=== PATIENT | female | born 1975 | race Caucasian/White ===

== ENCOUNTER 2017-02-11 17:43 | Inpatient (IN) | payer MEDICAID ==
[~2017-02-11] VITALS: Ht 162.6 cm; Wt 96.1 kg
[2017-02-11] MEDS ORDERED: ACETAMINOPHEN 500 MG TABLET PO ONE (18:30)
[2017-02-11] MEDS ORDERED: SODIUM CHLORIDE 0.9% 1,000ML IVBOLUS ONE (18:30)
[2017-02-11] MEDS ORDERED: LORazepam 1MG TABLET PO ONE (18:30)
[2017-02-11] MEDS ORDERED: CEFTRIAXONE PMX 1GM/50ML 0 ML ONE (18:58)
[2017-02-11] MEDS ORDERED: LORazepam 1MG TABLET ONE (18:58)
[2017-02-11] MEDS ORDERED: ACETAMINOPHEN 500 MG TABLET ONE (18:58)
[2017-02-11] MEDS ORDERED: CEFTRIAXONE PMX 2GM/50ML 50 ML IVPB ONE (19:00)
[2017-02-11 19:02] LABS: BLOOD UREA NITROGEN 8 mg/dL (7-18)
[2017-02-11] MEDS ORDERED: CEFTRIAXONE PMX 2GM/50ML 50 ML ONE (19:03)
[2017-02-11 19:07] LABS: ASPARTATE AMINO TRANSFERASE 20 U/L (15-37)
[2017-02-11 19:09] LABS: IS PT STATUS REG ER OR PRE ER? YES
[2017-02-11 19:16] LABS: PATH.CAST-FLAG NOT PRESENT; SPERM-FLAG NOT PRESENT; SRC-FLAG NOT PRESENT; XTAL-FLAG NOT PRESENT; YLC-FLAG NOT PRESENT
[2017-02-11 19:16] LABS: RAPID INFLUENZA A Negative (Negative); RAPID INFLUENZA B Negative (Negative)
[2017-02-11] MEDS ORDERED: LORazepam 2 MG/ML, 1ML IVPush PRN (19:30)
[2017-02-11] MEDS ORDERED: LORazepam 2 MG/ML, 1ML ONE (19:54)
[2017-02-11 20:03] LABS: DIFF TOTAL CELLS COUNTED 200 CELL DIFF
[2017-02-11 20:04] LABS: POLYCHROMASIA 1+; SMUDGE CELLS 1+; VERIFY COUNTS? YES
[2017-02-11] MEDS: SODIUM CHLORIDE 0.9% 1,000 ML IV SCH (21:50)
[2017-02-11] MEDS ORDERED: DOCUSATE 100 MG CAPSULE PO PRN (22:00)
[2017-02-11] MEDS ORDERED: CEFTRIAXONE 2 GM in SODIUM CHLORIDE 0.9% 50 ML IV SCH (22:00)
[2017-02-11] MEDS ORDERED: BISACODYL 10 MG SUPP PR PRN (22:00)
[2017-02-11] MEDS ORDERED: ONDANSETRON 2MG/ML, 2ML IVPush PRN (22:00)
[2017-02-11] MEDS ORDERED: TRAZODONE 50MG TABLET PO PRN (22:00)
[2017-02-11] MEDS ORDERED: POLYETHYLENE GLYCOL 17 GM PACKET PO PRN (22:00)
[2017-02-11] MEDS ORDERED: LABETALOL 5MG/ML, 20ML IVPush PRN (22:00)
[2017-02-11 23:33] LABS: IS PT STATUS REG ER OR PRE ER? NO
[2017-02-11] MEDS: NICOTINE 14MG/24 HR PATCH.TD24 TD SCH (23:56)
[2017-02-11] MEDS: ENOXAPARIN 40 MG/0.4 ML SQ SCH (23:56)
[2017-02-11 23:59] VITALS: BP 107/70
[2017-02-12] MEDS: KETOROLAC 30 MG/1 ML IVPush PRN ×4 (00:20→17:43)
[2017-02-12 01:02] VITALS: BP 99/66
[2017-02-12] MEDS: SODIUM CHLORIDE 0.9% 1,000 ML IV SCH ×4 (03:12→21:48)
[2017-02-12 06:33] VITALS: BP 114/76
[2017-02-12] MEDS: THIAMINE 100MG TABLET PO SCH (08:09)
[2017-02-12] MEDS: ASPIRIN 81 MG TABLET CHEW PO SCH (08:09)
[2017-02-12] MEDS: FOLIC ACID 1 MG TABLET PO SCH (08:10)
[2017-02-12 09:38] LABS: BLOOD UREA NITROGEN 7 mg/dL (7-18)
[2017-02-12 09:43] LABS: ASPARTATE AMINO TRANSFERASE 25 U/L (15-37)
[2017-02-12 09:45] LABS: IS PT STATUS REG ER OR PRE ER? NO
[2017-02-12 12:36] VITALS: BP 105/69
[2017-02-12] MEDS: LORazepam 2 MG/ML, 1ML IVPush PRN ×2 (15:53→21:49)
[2017-02-12] MEDS: NICOTINE 14MG/24 HR PATCH.TD24 TD SCH (17:44)
[2017-02-12] MEDS: ENOXAPARIN 40 MG/0.4 ML SQ SCH (17:44)
[2017-02-12] MEDS: CEFTRIAXONE PMX 2GM/50ML 50 ML IVPB SCH (17:45)
[2017-02-12 18:43] VITALS: BP 118/67
[2017-02-13] MEDS: SODIUM CHLORIDE 0.9% 1,000 ML IV SCH ×3 (03:00→16:14)
[2017-02-13] MEDS: LORazepam 2 MG/ML, 1ML IVPush PRN ×2 (04:54→20:11)
[2017-02-13] MEDS: KETOROLAC 30 MG/1 ML IVPush PRN ×3 (04:54→20:11)
[2017-02-13 06:04] LABS: BLOOD UREA NITROGEN 6 mg/dL (7-18)
[2017-02-13 06:52] VITALS: BP 112/75
[2017-02-13] MEDS: THIAMINE 100MG TABLET PO SCH (09:30)
[2017-02-13] MEDS: FOLIC ACID 1 MG TABLET PO SCH (09:30)
[2017-02-13] MEDS: ASPIRIN 81 MG TABLET CHEW PO SCH (09:30)
[2017-02-13] MEDS: ACETAMINOPHEN 325 MG TABLET PO PRN ×2 (09:31→14:21)
[2017-02-13 13:20] VITALS: BP 119/83
[2017-02-13] MEDS: CEFTRIAXONE PMX 2GM/50ML 50 ML IVPB SCH (18:23)
[2017-02-13] MEDS: ENOXAPARIN 40 MG/0.4 ML SQ SCH (18:24)
[2017-02-13] MEDS: NICOTINE 14MG/24 HR PATCH.TD24 TD SCH (18:24)
[2017-02-13 20:46] VITALS: BP 126/89
[2017-02-14] MEDS: LORazepam 2 MG/ML, 1ML IVPush PRN ×2 (02:33→08:46)
[2017-02-14] MEDS: KETOROLAC 30 MG/1 ML IVPush PRN ×2 (02:33→08:46)
[2017-02-14 04:14] VITALS: BP 115/80
[2017-02-14] MEDS: SODIUM CHLORIDE 0.9% 1,000 ML IV SCH ×3 (05:00→11:40)
[2017-02-14 08:23] VITALS: BP 119/82
[2017-02-14] MEDS: FOLIC ACID 1 MG TABLET PO SCH (08:29)
[2017-02-14] MEDS: ASPIRIN 81 MG TABLET CHEW PO SCH (08:29)
[2017-02-14] MEDS: THIAMINE 100MG TABLET PO SCH (08:29)
[2017-02-14] MEDS: ACETAMINOPHEN 325 MG TABLET PO PRN (08:46)
[2017-02-14] MEDS ORDERED: CEFD300C37 PO (12:55)
[2017-02-14 14:08] VITALS: BP 110/73
[2017-02-14 15:15] VITALS: BP 110/73
== END 2017-02-14 15:40 | disposition home or self-care (01) | DRG 871 ==
LOC: ED 18:23 → EDIP 20:29 → 4NOR 22:27
PROVIDERS: ADMIT Internal Medicine; ATTEND Internal Medicine
PROC: 0T9B70Z Drainage of Bladder with Drainage Device, Via Natural or Artificial Opening (ICD-10-PCS; principal; 2017-02-11)
DX: A41.9 Sepsis, unspecified organism (principal); E43 Unspecified severe protein-calorie malnutrition; N10 Acute pyelonephritis; N30.91 Cystitis, unspecified with hematuria; J44.9 Chronic obstructive pulmonary disease, unspecified; F41.9 Anxiety disorder, unspecified; F15.10 Other stimulant abuse, uncomplicated; F10.10 Alcohol abuse, uncomplicated; F17.210 Nicotine dependence, cigarettes, uncomplicated; E86.0 Dehydration; B96.20 Unspecified Escherichia coli [E. coli] as the cause of diseases classified elsewhere; Z71.6 Tobacco abuse counseling; Z80.9 Family history of malignant neoplasm, unspecified; Z82.49 Family history of ischemic heart disease and other diseases of the circulatory system; Z82.5 Family history of asthma and other chronic lower respiratory diseases; Z68.36 Body mass index [BMI] 36.0-36.9, adult
CPT/HCPCS: 36415; 71010; 80048; 80053; 80307; 81001; 82550; 83605; 83735; 84145; 84439; 84443; 84484; 84703; 85025; 87040; 87077; 87086; 87186; 87400; 93005; 96365; 96375; J0696; J1650; J1885; J2060; J7030

== ENCOUNTER 2017-08-27 11:57 | Emergency (ER) | payer MEDICAID ==
[~2017-08-27] VITALS: Ht 160 cm; Wt 89.5 kg
[~2017-08-27 11:57] MED LIST: CEFD300C37 PO
[2017-08-27 12:05] VITALS: BP 140/90
[2017-08-27] MEDS ORDERED: FLUORESCEIN OPHTHALMIC 1 MG STRIP ONE (12:45)
[2017-08-27] MEDS ORDERED: PROPARACAINE OPHTH 0.5%, 15ML ONE (12:45)
== END 2017-08-27 13:57 | disposition home or self-care (01) ==
LOC: ED 13:50
DX: J01.10 Acute frontal sinusitis, unspecified (principal); J44.9 Chronic obstructive pulmonary disease, unspecified
CPT/HCPCS: 99283

== ENCOUNTER 2017-09-01 20:26 | Emergency (ER) | payer MEDICAID ==
[~2017-09-01] VITALS: Ht 162.6 cm; Wt 90.3 kg
[2017-09-01 20:38] VITALS: BP 127/79
[2017-09-01] MEDS ORDERED: SODIUM CHLORIDE 0.9% 1,000ML IVBOLUS ONE (21:00)
[2017-09-01 21:13] LABS: BASOPHILS # (AUTO) 0.04 x10^3/uL (0-0.1); BASOPHILS % (AUTO) 1 % (0-1); EOSINOPHILS # (AUTO) 0.41 x10^3/uL (0-0.4); EOSINOPHILS % (AUTO) 5 % (1-7); LYMPHOCYTES # (AUTO) 1.97 x10^3/uL (1-3.4); LYMPHOCYTES % (AUTO) 26 % (22-44); MD NO; MEAN CORPUSCULAR HEMOGLOBIN 29.8 pg (27.0-34.8); MEAN CORPUSCULAR HGB CONC 33.4 g/dL (32.4-35.8); MEAN CORPUSCULAR VOLUME 89.3 fL (80-100); MEAN PLATELET VOLUME 7.1 fL (7.4-10.4); MONOCYTES % (AUTO) 9 % (2-9); NEUTROPHILS # (AUTO) 4.49 x10^3/uL (1.8-6.8); NEUTROPHILS % (AUTO) 59 % (42-75); PLATELET COUNT 404 x10^3/uL (130-400); RED CELL DISTRIBUTION WIDTH 15.2 % (9.6-15.2)
[2017-09-01 21:24] LABS: ALANINE AMINOTRANSFERASE 27 U/L (12-78); ALBUMIN 3.2 g/dL (3.4-5.0); ANION GAP 8 mmol/L (5-15); CALCIUM 8.4 mg/dL (8.5-10.1); CHLORIDE 103 mmol/L (98-107); CREATININE 0.88 mg/dL (0.55-1.02)
[2017-09-01 21:26] LABS: RAPID INFLUENZA A Negative (Negative); RAPID INFLUENZA B Negative (Negative)
[2017-09-01 21:28] LABS: ALKALINE PHOSPHATASE 81 U/L (45-117); BILIRUBIN,TOTAL 0.2 mg/dL (0.2-1.0)
[2017-09-01 21:31] LABS: MICROSCOPIC NOT IND
[2017-09-01 21:42] LABS: AMPHETAMINE SCREEN, URINE Positive (Negative); BARBITURATE SCREEN, URINE Negative (Negative); BENZODIAZEPINE SCREEN, URINE Negative (Negative); CANNABINOID SCREEN, URINE Negative (Negative); COCAINE SCREEN, URINE Negative (Negative); METHADONE SCREEN, URINE Negative (Negative); OPIATE SCREEN, URINE Negative (Negative)
[2017-09-01 21:44] LABS: CULTURE INDICATED? NO
== END 2017-09-01 22:27 | disposition home or self-care (01) ==
LOC: ED 22:03
DX: B34.9 Viral infection, unspecified (principal); F15.10 Other stimulant abuse, uncomplicated; Z72.9 Problem related to lifestyle, unspecified; J44.9 Chronic obstructive pulmonary disease, unspecified
CPT/HCPCS: 36415; 71046; 80053; 80307; 81003; 83605; 84145; 84703; 85025; 87400; 99285; G0479

== ENCOUNTER 2018-02-21 19:08 | Emergency (ER) | payer SELFPAY ==
[~2018-02-21] VITALS: Ht 162.6 cm; Wt 90.2 kg
[2018-02-21 19:25] VITALS: BP 139/93
[2018-02-21 20:03] LABS: CULTURE INDICATED? YES; MICROSCOPIC INDICATED
== END 2018-02-21 20:46 | disposition home or self-care (01) ==
LOC: ED 20:45
DX: S60.031A Contusion of right middle finger without damage to nail, initial encounter (principal); N30.01 Acute cystitis with hematuria; W23.0XXA Caught, crushed, jammed, or pinched between moving objects, initial encounter; Y93.89 Activity, other specified; Y99.8 Other external cause status; Y92.009 Unspecified place in unspecified non-institutional (private) residence as the place of occurrence of the external cause; J44.9 Chronic obstructive pulmonary disease, unspecified
CPT/HCPCS: 29130; 81001; 87077; 87086; 87186; 99285

== ENCOUNTER 2018-03-12 16:08 | Emergency (ER) | payer SELFPAY ==
[~2018-03-12] VITALS: Ht 162.6 cm; Wt 91.0 kg
[2018-03-12 16:10] VITALS: BP 129/80
[2018-03-12 17:18] LABS: HCG UR SG 1.036 (1.003-1.030); MICROSCOPIC NOT IND
[2018-03-12 17:20] LABS: CULTURE INDICATED? NO
[2018-03-12] MEDS ORDERED: HYDROcodone/APAP 5/325 TABLET PO ONE (18:00)
[2018-03-12] MEDS ORDERED: HYDROcodone/APAP 5/325 TABLET ONE (18:28)
== END 2018-03-12 18:43 | disposition home or self-care (01) ==
LOC: ED 17:39
DX: S63.632A Sprain of interphalangeal joint of right middle finger, initial encounter (principal); J44.9 Chronic obstructive pulmonary disease, unspecified; M25.521 Pain in right elbow; F17.200 Nicotine dependence, unspecified, uncomplicated; X58.XXXA Exposure to other specified factors, initial encounter; Y93.89 Activity, other specified; Y92.89 Other specified places as the place of occurrence of the external cause; Y99.0 Civilian activity done for income or pay
CPT/HCPCS: 81003; 81025; 99285

== ENCOUNTER 2019-03-13 17:03 | Emergency (ER) | payer SELFPAY ==
[~2019-03-13] VITALS: Ht 162.6 cm; Wt 90.1 kg
--- NOTE | 2019-03-13 18:29 | NUR ---
NO ANS WHEN CALLED FOR ROOM AT THIS TIME.
--- NOTE | 2019-03-13 19:14 | NUR ---
RN ARRIVED TO ROOM AND PTS MOTHER BEGAN TO YELL AT RN SAYING "THIS IS BULLSHIT WE HAVE NEVER BEEN TREATED LIKE THIS, MY DAUGHTER IS IN PAIN SHE SHOULD BE THE FIRTS SEEN! WE ARE FUCKEN LEAVING RIGHT NOW" DAUGHTER RESPONDED "NO MOM IM I ALOT OF PAIN AND I DONT FEEL WELL, MY CHEST FEELS LIKE SOMETHING IS PRESSURING ON IT, I NEED HELP MAYBE AN ASPARIN OR TYLENOL. OR SOMETHING FOR LIKE ANXIETY." PTS MOTHER ENCOURAGING FOR HER TO LEAVE. INFORMED THEY WOULD HAVE TO LEAVE AMA AND THAT THIS RN RECOMMENED THAT DAUGHTER STAY IF SHE WAS IN MUCH DISTRESS REPORTED. RN THEN BEGAN ASSESMENT. MOTHER BECAME VERY INPATIENT AND PACING ROOM. DAUGHTER COOPERATIVE. ADMITTED TO [facility] 3 DAYS AGO.
--- NOTE | 2019-03-13 19:17 | NUR ---
THIS IS A 43 Y/O FEMALE THAT ARRIVES TO THE ED FOR SEVERE ANXIETY AND RESP DISTRESS. PT REPROTS SHE HAS SEVERE PRESURE IN HER CHEST AND UNABLE TO CATCH HER BREATH. HER SYMPTOMS STARTED THIS MORNING AROUND 6 AM. PT CONNECTED TO ALL MONITORS AND CALL LIGHT IN REACH. LUNGS SOUNDS WERE DIMINISHED. PT HAS GOOD EQUAL PULSES AND GOOD CAP REFILL. PT HAS NO S/SX OF DRUG USE. HEAVY SMOKER AND PT USES METH. AWAITING FURTHER ORDERS.
[2019-03-13] MEDS ORDERED: morphine SULFATE 10 MG/ML, 1ML IVPush ONE (19:30)
[2019-03-13] MEDS ORDERED: KETOROLAC 30 MG/1 ML IVPush ONE (19:30)
[2019-03-13] MEDS ORDERED: DIPHENHYDRAMINE 50 MG/ML, 1ML IVPush ONE (19:30)
[2019-03-13] MEDS ORDERED: ONDANSETRON 2MG/ML, 2ML ONE (19:33)
[2019-03-13] MEDS ORDERED: KETOROLAC 30 MG/1 ML ONE (19:33)
[2019-03-13] MEDS ORDERED: MORPHINE SULFATE 4 MG/ML, 1ML ONE (19:33)
[2019-03-13 19:38] LABS: BASOPHILS # (AUTO) 0.05 x10^3/uL (0-0.1); BASOPHILS % (AUTO) 0 % (0-1); EOSINOPHILS # (AUTO) 0.32 x10^3/uL (0-0.4); EOSINOPHILS % (AUTO) 2 % (1-7); LYMPHOCYTES # (AUTO) 2.67 x10^3/uL (1-3.4); LYMPHOCYTES % (AUTO) 19 % (22-44); MD NO; MEAN CORPUSCULAR HEMOGLOBIN 30.1 pg (27.0-34.8); MEAN CORPUSCULAR HGB CONC 32.8 g/dL (32.4-35.8); MEAN CORPUSCULAR VOLUME 91.8 fL (80-100); MEAN PLATELET VOLUME 7.7 fL (7.4-10.4); MONOCYTES # (AUTO) 0.93 x10^3/uL (0.2-0.8); MONOCYTES % (AUTO) 7 % (2-9); NEUTROPHILS % (AUTO) 72 % (42-75); PLATELET COUNT 390 x10^3/uL (130-400); RED CELL DISTRIBUTION WIDTH 14.4 % (9.6-15.2)
[2019-03-13 19:47] LABS: ALBUMIN 3.3 g/dL (3.4-5.0); ANION GAP 7 mmol/L (5-15); CALCIUM 8.6 mg/dL (8.5-10.1); CHLORIDE 109 mmol/L (98-107)
[2019-03-13 19:50] LABS: INTERNATIONAL NORMALIZED RATIO 0.95 (0.93-1.1)
--- NOTE | 2019-03-13 19:53 | NUR ---
PT MEDICATED PER EMAR. NAGAN
[2019-03-13 19:54] LABS: ALANINE AMINOTRANSFERASE 24 U/L (12-78); ALKALINE PHOSPHATASE 76 U/L (45-117); BILIRUBIN,TOTAL 0.3 mg/dL (0.2-1.0); CREATININE 0.86 mg/dL (0.55-1.02); TOTAL PROTEIN 6.8 g/dL (6.4-8.2); TROPONIN I < 0.015 ng/mL (0.000-0.045)
[2019-03-13] MEDS ORDERED: DIPHENHYDRAMINE 50 MG/ML, 1ML ONE (19:55)
[2019-03-13 19:59] LABS: D-DIMER 0.92 ug/mlFEU (0.00-0.52)
--- NOTE | 2019-03-13 20:22 | NUR ---
PT TO HAVE CTA AT THIS TIME.
[2019-03-13] MEDS ORDERED: ONDANSETRON ODT 4 MG PO ONE (21:00)
--- NOTE | 2019-03-13 21:15 | NUR ---
PT ASSITED TO RESTROOM FOR URINE SAMPLE. ÁNGEL. PT REPORTS SHE IS VERY ANXIOUS AND WHAT WE PLAN TO DO ABOUT IT?
[2019-03-13] MEDS ORDERED: OMNIPAQUE 350 MG/ML, 100ML BOTTLE ONE (21:45)
[2019-03-13 21:57] VITALS: BP 174/89
--- NOTE | 2019-03-13 21:58 | NUR ---
PTS MOTHER CONTINUES INDIRECT RUDE COMMENTS TO THIS RN WHEN RN IN ROOM OR UNABLE TO UPDATE DUE TO PENDING RESULTS. MOTHER UPSET RN WILL NOT FEED HER DAUGHTER DUE TO NPO STATUS UNTIL MD STATES OTHERWISE.
[2019-03-13] MEDS ORDERED: HYDROcodone/APAP 5/325 TABLET PO ONE (22:30)
[2019-03-13] MEDS ORDERED: ONDANSETRON ODT 4 MG ONE (22:54)
[2019-03-13] MEDS ORDERED: HYDROcodone/APAP 5/325 TABLET ONE (22:55)
--- NOTE | 2019-03-13 23:12 | NUR ---
Patient/Caregiver given discharge instructions and they have confirmed that they understand the instructions. Patient ambulatory with steady gait.
== END 2019-03-13 23:14 | disposition home or self-care (01) ==
LOC: ED 20:14
DX: M94.0 Chondrocostal junction syndrome [Tietze] (principal); R07.89 Other chest pain; F17.200 Nicotine dependence, unspecified, uncomplicated; J44.9 Chronic obstructive pulmonary disease, unspecified
CPT/HCPCS: 36415; 71045; 71275; 80053; 84484; 85025; 85379; 85610; 85730; 93005; 96374; 96375; 99284; J1200; J1885; J2270; Q0162; Q9967

== ENCOUNTER 2021-03-22 02:14 | Inpatient (IN) | payer MEDICAID ==
[~2021-03-22] VITALS: Ht 157.5 cm; Wt 96.7 kg
--- NOTE | 2021-03-22 02:40 | NUR ---
THIS RN WALKED COVID SWAB TO LAB AT THIS TIME.
[2021-03-22] MEDS ORDERED: ALBUTEROL/IPRATROPIUM 2.5MG/0.5MG, 3 ML ONE ×2 (02:51→03:20)
[2021-03-22] MEDS ORDERED: methylPREDNISolone SOD SUCC 125 MG/2 ML ONE (02:51)
[2021-03-22] MEDS: ALBUTEROL/IPRATROPIUM 2.5MG/0.5MG, 3 ML NPPB SCH ×2 (02:58→03:29)
[2021-03-22] MEDS ORDERED: methylPREDNISolone SOD SUCC 125 MG/2 ML IV ONE (03:00)
[2021-03-22] MEDS ORDERED: SODIUM CHLORIDE FLUSH 10ML SYR IVF ONE (03:00)
[2021-03-22] MEDS ORDERED: SODIUM CHLORIDE 0.9% 1,000ML IVBOLUS ONE (03:00)
[2021-03-22] MEDS ORDERED: ONDANSETRON 2MG/ML, 2ML ONE (03:07)
[2021-03-22 03:09] LABS: BASOPHILS % (AUTO) 1 % (0-1); EOSINOPHILS % (AUTO) 0 % (1-7); LYMPHOCYTES % (AUTO) 21 % (22-44); MEAN CORPUSCULAR HEMOGLOBIN 31.5 pg (27.0-34.8); MEAN CORPUSCULAR HGB CONC 34.1 g/dL (32.4-35.8); MEAN PLATELET VOLUME 8.5 fL (7.4-10.4); MONOCYTES % (AUTO) 7 % (2-9); NEUTROPHILS % (AUTO) 71 % (42-75); PLATELET COUNT 220 x10^3/uL (130-400); RED BLOOD COUNT 5.18 x10^6/uL (3.82-5.3); RED CELL DISTRIBUTION WIDTH 15.4 % (9.6-15.2)
--- NOTE | 2021-03-22 03:14 | NUR ---
Pt placed on Oxy mask at 15lpm due to continued hypoxemia. Pt O2 sats 86% on 6L NC. Pt continues to exhibit moderate to severe s/s of respiratory distress. Dr. Denice montoya.
[2021-03-22 03:16] LABS: ALANINE AMINOTRANSFERASE 32 U/L (12-78); ALBUMIN 2.7 g/dL (3.4-5.0); ANION GAP 4 mmol/L (5-15); CALCIUM 8.2 mg/dL (8.5-10.1); CHLORIDE 100 mmol/L (98-107); CREATININE 0.91 mg/dL (0.55-1.02)
[2021-03-22 03:18] LABS: ALKALINE PHOSPHATASE 89 U/L (45-117); BILIRUBIN,TOTAL 0.3 mg/dL (0.2-1.0); TOTAL PROTEIN 7.1 g/dL (6.4-8.2)
[2021-03-22] MEDS ORDERED: ONDANSETRON 2MG/ML, 2ML IVPush ONE (03:30)
[2021-03-22 03:33] LABS: TROPONIN I < 0.015 ng/mL (0.000-0.045)
--- NOTE | 2021-03-22 04:04 | NUR ---
Hospitalist at bedside.
--- NOTE | 2021-03-22 04:15 | NUR ---
Report given to HAVEN Zendejas no further questions at this time. Aware that pt will be taken to CT and then up to Ip bed assignment.
[2021-03-22] MEDS: AZITHROMYCIN 500 MG TABLET PO SCH ×2 (04:30→07:29)
[2021-03-22] MEDS ORDERED: ACETAMINOPHEN 500 MG TABLET PO PRN (04:30)
--- NOTE | 2021-03-22 04:37 | NUR ---
Pt transported to CT at this time on Oxy mask at 15lpm, tolerating well.
[2021-03-22] MEDS ORDERED: OMNIPAQUE 350 MG/ML, 100ML BOTTLE ONE (04:58)
[2021-03-22 05:39] VITALS: BP 95/66
[2021-03-22] MEDS ORDERED: AZITHROMYCIN 500 MG in SODIUM CHLORIDE 0.9% 250 ML IV ONE (06:00)
[2021-03-22] MEDS ORDERED: CEFTRIAXONE 1,000 MG in DEXTROSE 5% 50 ML IVPB ONE (06:00)
[2021-03-22] MEDS: ENOXAPARIN 40 MG/0.4 ML SQ SCH (06:34)
[2021-03-22] MEDS: ALBUTEROL-IPRATROPIUM MDI INH INH SCH ×4 (07:00→23:51)
[2021-03-22 08:59] VITALS: BP 108/75
[2021-03-22] MEDS: BENZONATATE 100 MG CAPSULE PO PRN (09:43)
[2021-03-22] MEDS: DEXAMETHASONE 4 MG/ML, 1ML IVPush SCH (09:43)
[2021-03-22] MEDS ORDERED: FUROSEMIDE 40 MG/4 ML IV ONE (11:00)
[2021-03-22 12:13] LABS: HCT (SEDRATE) 46.5 % (34.6-47.8)
[2021-03-22 12:26] LABS: D-DIMER 1.3 ug/mlFEU (0.00-0.52)
[2021-03-22] MEDS: THIAMINE 100MG TABLET PO SCH (12:29)
[2021-03-22] MEDS: ZINC SULFATE 220 MG CAPSULE PO SCH (12:29)
[2021-03-22] MEDS: CHOLECALCIFEROL 5,000u TAB PO SCH (12:29)
[2021-03-22] MEDS ORDERED: REMDESIVIR 200 MG in SODIUM CHLORIDE 0.9% 250 ML IVPB ONE (14:00)
[2021-03-22 14:53] VITALS: BP 109/75
[2021-03-22] MEDS: ASCORBIC ACID 500 MG TABLET PO SCH (17:18)
[2021-03-22 19:39] VITALS: BP 122/74
[2021-03-23 01:44] VITALS: BP 100/69
[2021-03-23] MEDS: ALBUTEROL-IPRATROPIUM MDI INH INH SCH ×6 (03:36→23:36)
[2021-03-23] MEDS: ENOXAPARIN 40 MG/0.4 ML SQ SCH (04:29)
[2021-03-23 05:33] LABS: CHLORIDE 104 mmol/L (98-107)
[2021-03-23 05:45] LABS: ALANINE AMINOTRANSFERASE 29 U/L (12-78); ALBUMIN 2.4 g/dL (3.4-5.0); ALKALINE PHOSPHATASE 82 U/L (45-117); BILIRUBIN,TOTAL 0.2 mg/dL (0.2-1.0); CALCIUM 8.7 mg/dL (8.5-10.1); TOTAL PROTEIN 6.6 g/dL (6.4-8.2)
[2021-03-23 05:49] LABS: ANION GAP 4 mmol/L (5-15)
[2021-03-23 06:50] LABS: BASOPHILS % (AUTO) 0 % (0-1); EOSINOPHILS % (AUTO) 0 % (1-7); LYMPHOCYTES % (AUTO) 8 % (22-44); MEAN CORPUSCULAR HEMOGLOBIN 30.9 pg (27.0-34.8); MEAN CORPUSCULAR HGB CONC 33.2 g/dL (32.4-35.8); MEAN PLATELET VOLUME 8.3 fL (7.4-10.4); MONOCYTES % (AUTO) 5 % (2-9); NEUTROPHILS % (AUTO) 87 % (42-75); PLATELET COUNT 264 x10^3/uL (130-400); RED BLOOD COUNT 4.91 x10^6/uL (3.82-5.3); RED CELL DISTRIBUTION WIDTH 15.4 % (9.6-15.2)
[2021-03-23 08:17] VITALS: BP 105/72
[2021-03-23] MEDS: CHOLECALCIFEROL 5,000u TAB PO SCH (08:52)
[2021-03-23] MEDS: ZINC SULFATE 220 MG CAPSULE PO SCH (08:52)
[2021-03-23] MEDS: THIAMINE 100MG TABLET PO SCH (08:52)
[2021-03-23] MEDS: AZITHROMYCIN 500 MG TABLET PO SCH (08:52)
[2021-03-23] MEDS: DEXAMETHASONE 4 MG/ML, 1ML IVPush SCH (08:52)
[2021-03-23] MEDS: ASCORBIC ACID 500 MG TABLET PO SCH ×2 (08:52→16:39)
[2021-03-23 12:28] VITALS: BP 111/75
[2021-03-23] MEDS: HYDROcodone/APAP 5/325 TABLET PO PRN ×2 (12:58→20:36)
[2021-03-23] MEDS ORDERED: GUAIFENESIN/DM 200-20MG, 10ML UDC PO PRN (13:00)
[2021-03-23] MEDS: REMDESIVIR 100 MG in SODIUM CHLORIDE 0.9% 250 ML IVPB SCH (15:22)
[2021-03-23] MEDS: BENZONATATE 100 MG CAPSULE PO PRN (16:03)
[2021-03-23] MEDS: KETOROLAC 30 MG/1 ML IM PRN (16:39)
[2021-03-23 19:32] VITALS: BP 108/71
[2021-03-23] MEDS: TEMAZEPAM 15 MG CAPSULE PO PRN (20:36)
[2021-03-24 01:53] VITALS: BP 101/66
[2021-03-24] MEDS: ALBUTEROL-IPRATROPIUM MDI INH INH SCH ×6 (03:13→23:17)
[2021-03-24] MEDS: ENOXAPARIN 40 MG/0.4 ML SQ SCH (04:29)
[2021-03-24 05:04] LABS: BASOPHILS % (AUTO) 0 % (0-1); EOSINOPHILS % (AUTO) 0 % (1-7); LYMPHOCYTES % (AUTO) 9 % (22-44); MEAN CORPUSCULAR HEMOGLOBIN 31.2 pg (27.0-34.8); MEAN CORPUSCULAR HGB CONC 33.4 g/dL (32.4-35.8); MEAN PLATELET VOLUME 8.6 fL (7.4-10.4); MONOCYTES % (AUTO) 5 % (2-9); NEUTROPHILS % (AUTO) 86 % (42-75); PLATELET COUNT 298 x10^3/uL (130-400); RED BLOOD COUNT 4.71 x10^6/uL (3.82-5.3); RED CELL DISTRIBUTION WIDTH 15.3 % (9.6-15.2)
[2021-03-24 05:09] LABS: CHLORIDE 104 mmol/L (98-107)
[2021-03-24 05:18] LABS: ALANINE AMINOTRANSFERASE 29 U/L (12-78); ALBUMIN 2.3 g/dL (3.4-5.0); ALKALINE PHOSPHATASE 84 U/L (45-117); ANION GAP 3 mmol/L (5-15); BILIRUBIN,TOTAL 0.2 mg/dL (0.2-1.0); CALCIUM 8.8 mg/dL (8.5-10.1); CREATININE 0.95 mg/dL (0.55-1.02); TOTAL PROTEIN 6.6 g/dL (6.4-8.2)
[2021-03-24 08:09] VITALS: BP 109/72
[2021-03-24] MEDS: KETOROLAC 30 MG/1 ML IM PRN ×3 (08:25→23:17)
[2021-03-24] MEDS: BENZONATATE 100 MG CAPSULE PO PRN ×2 (08:28→20:17)
[2021-03-24] MEDS: CHOLECALCIFEROL 5,000u TAB PO SCH (08:28)
[2021-03-24] MEDS: THIAMINE 100MG TABLET PO SCH (08:28)
[2021-03-24] MEDS: AZITHROMYCIN 500 MG TABLET PO SCH (08:28)
[2021-03-24] MEDS: ASCORBIC ACID 500 MG TABLET PO SCH ×2 (08:28→16:57)
[2021-03-24] MEDS: ZINC SULFATE 220 MG CAPSULE PO SCH (08:29)
[2021-03-24] MEDS: DEXAMETHASONE 4 MG/ML, 1ML IVPush SCH (08:30)
[2021-03-24] MEDS: HYDROcodone/APAP 5/325 TABLET PO PRN ×2 (11:53→20:17)
[2021-03-24 12:11] VITALS: BP 112/75
[2021-03-24] MEDS: REMDESIVIR 100 MG in SODIUM CHLORIDE 0.9% 250 ML IVPB SCH (15:32)
[2021-03-24] MEDS ORDERED: OMNIPAQUE 350 MG/ML, 100ML BOTTLE ONE (16:36)
[2021-03-24 18:56] VITALS: BP 120/80
[2021-03-24] MEDS: TEMAZEPAM 15 MG CAPSULE PO PRN (20:17)
[2021-03-25 00:24] VITALS: BP 117/75
[2021-03-25] MEDS: HYDROcodone/APAP 5/325 TABLET PO PRN ×3 (03:33→21:22)
[2021-03-25] MEDS: ALBUTEROL-IPRATROPIUM MDI INH INH SCH ×4 (03:33→16:24)
[2021-03-25] MEDS: ENOXAPARIN 40 MG/0.4 ML SQ SCH (05:07)
[2021-03-25 05:28] LABS: ALBUMIN 2.2 g/dL (3.4-5.0); ANION GAP 4 mmol/L (5-15); CALCIUM 8.6 mg/dL (8.5-10.1); CHLORIDE 103 mmol/L (98-107)
[2021-03-25 05:31] LABS: ALANINE AMINOTRANSFERASE 28 U/L (12-78); ALKALINE PHOSPHATASE 76 U/L (45-117); BILIRUBIN,TOTAL 0.2 mg/dL (0.2-1.0); CREATININE 0.78 mg/dL (0.55-1.02); TOTAL PROTEIN 6.1 g/dL (6.4-8.2)
[2021-03-25 08:15] VITALS: BP 108/73
[2021-03-25] MEDS: THIAMINE 100MG TABLET PO SCH (09:19)
[2021-03-25] MEDS: BENZONATATE 100 MG CAPSULE PO PRN ×2 (09:19→21:21)
[2021-03-25] MEDS: ASCORBIC ACID 500 MG TABLET PO SCH ×2 (09:19→16:24)
[2021-03-25] MEDS: CHOLECALCIFEROL 5,000u TAB PO SCH (09:19)
[2021-03-25] MEDS: ZINC SULFATE 220 MG CAPSULE PO SCH (09:19)
[2021-03-25] MEDS: KETOROLAC 30 MG/1 ML IM PRN ×2 (09:20→17:45)
[2021-03-25] MEDS: DEXAMETHASONE 4 MG/ML, 1ML IVPush SCH (09:20)
[2021-03-25 12:45] VITALS: BP 111/72
[2021-03-25] MEDS: REMDESIVIR 100 MG in SODIUM CHLORIDE 0.9% 250 ML IVPB SCH (13:28)
[2021-03-25] MEDS: TEMAZEPAM 15 MG CAPSULE PO PRN (21:21)
[2021-03-25 21:27] VITALS: BP 139/90
[2021-03-26 00:05] VITALS: BP 145/90
[2021-03-26] MEDS: ENOXAPARIN 40 MG/0.4 ML SQ SCH (04:50)
[2021-03-26] MEDS: KETOROLAC 30 MG/1 ML IM PRN ×2 (04:51→11:56)
[2021-03-26 06:39] LABS: ALANINE AMINOTRANSFERASE 31 U/L (12-78); ALBUMIN 2.3 g/dL (3.4-5.0); CALCIUM 8.3 mg/dL (8.5-10.1); CREATININE 0.73 mg/dL (0.55-1.02)
[2021-03-26 06:40] LABS: ALKALINE PHOSPHATASE 77 U/L (45-117); BILIRUBIN,TOTAL 0.3 mg/dL (0.2-1.0); TOTAL PROTEIN 6.2 g/dL (6.4-8.2)
[2021-03-26 06:58] LABS: CHLORIDE 104 mmol/L (98-107)
[2021-03-26 06:59] LABS: ANION GAP 3 mmol/L (5-15)
[2021-03-26 08:31] VITALS: BP 130/80
[2021-03-26] MEDS: ALBUTEROL-IPRATROPIUM MDI INH INH SCH ×4 (08:56→11:56)
[2021-03-26] MEDS: ASCORBIC ACID 500 MG TABLET PO SCH (08:57)
[2021-03-26] MEDS: BENZONATATE 100 MG CAPSULE PO PRN (08:57)
[2021-03-26] MEDS: DEXAMETHASONE 4 MG/ML, 1ML IVPush SCH (08:57)
[2021-03-26] MEDS ORDERED: DEXA4TAB66 PO (08:57)
[2021-03-26] MEDS: ZINC SULFATE 220 MG CAPSULE PO SCH (08:57)
[2021-03-26] MEDS: CHOLECALCIFEROL 5,000u TAB PO SCH (08:57)
[2021-03-26] MEDS: THIAMINE 100MG TABLET PO SCH (08:57)
[2021-03-26] MEDS ORDERED: BENZ-17 PO (08:57)
[2021-03-26] MEDS ORDERED: Albuterol-Ipratropium Mdi INH (08:57)
[2021-03-26] MEDS: HYDROcodone/APAP 5/325 TABLET PO PRN (10:25)
[2021-03-26] MEDS: REMDESIVIR 100 MG in SODIUM CHLORIDE 0.9% 250 ML IVPB SCH (11:58)
[2021-03-26 13:39] VITALS: BP 154/86
[2021-03-27] MEDS ORDERED: METF500T17 PO (15:01)
== END 2021-03-26 14:39 | disposition home or self-care (01) | DRG 177 ==
LOC: ED 04:17 → EDIP 04:29 → 4WST 05:26
PROVIDERS: ADMIT Internal Medicine; ATTEND Hospitalist
DX: U07.1 COVID-19 (principal); J12.82 Pneumonia due to coronavirus disease 2019; J96.01 Acute respiratory failure with hypoxia; J44.0 Chronic obstructive pulmonary disease with (acute) lower respiratory infection; J44.1 Chronic obstructive pulmonary disease with (acute) exacerbation; E66.01 Morbid (severe) obesity due to excess calories; F15.10 Other stimulant abuse, uncomplicated; M06.9 Rheumatoid arthritis, unspecified; K43.9 Ventral hernia without obstruction or gangrene; Z79.899 Other long term (current) drug therapy; Z79.891 Long term (current) use of opiate analgesic; Z79.01 Long term (current) use of anticoagulants; Z71.51 Drug abuse counseling and surveillance of drug abuser; Z68.35 Body mass index [BMI] 35.0-35.9, adult
CPT/HCPCS: 36415; 71045; 71275; 74177; 76705; 80053; 82728; 83605; 83615; 83880; 84484; 84703; 85025; 85379; 85384; 85651; 86140; 87040; 93005; G0378; J0456; J0696; J1100; J1650; J1885; J1940; J2405; Q9967; U0005; J2930; J7030; J7050; U0003

== ENCOUNTER 2021-03-27 14:24 | Emergency (ER) | payer MEDICAID ==
[~2021-03-27] VITALS: Ht 162.6 cm; Wt 95.5 kg
[~2021-03-27 14:24] MED LIST changes: +Albuterol-Ipratropium Mdi INH; +BENZ-17 PO; +DEXA4TAB66 PO
[2021-03-27] MEDS ORDERED: METF500T17 PO (15:01)
--- NOTE | 2021-03-27 15:01 | NUR ---
PT TO ROOM VIA WHEELCHAIR FROM TRIAGE. FIRST CONTACT WITH PT WHO REPORTS SORE, "SWOLLEN" THROAT SINCE THIS AFTERNOON. "I WAS JUST TAKING A BATH WHEN IT STARTED". AIRWAY PATENT, SPEECH CLEAR. PT MANAGING OWN SECRETIONS. PER PT, DC'D FROM [facility] YESTERDAY AFTER ADMIT FOR COVID. DC'D ON O2 AND GIVEN RESOURCES FOR HOME O2 WHICH SHE HAS NOT CONTACTED YET, "I WAS GOING TO CALL AFTER MY BATH". DENIES CHEST PAIN OR WORSENED SOB. PT W FREQUENT, STRONG, PRODUCTIVE COUGH. +WHITE/YELLOW SPUTUM AND EXPIRATORY WHEEZE. MMM. SWOLLEN TONSILS W EXUDATE. BP/SPO2/ECG MONITORING IN PLACE. SINUS TACH ON MONITOR. SPO2 >90% ON 2L BASELINE O2 NEEDS.
[2021-03-27] MEDS ORDERED: DEXAMETHASONE 4 MG TABLET ONE (15:26)
[2021-03-27] MEDS ORDERED: FLUCONAZOLE 100 MG TABLET ONE (15:26)
[2021-03-27] MEDS ORDERED: FLUCONAZOLE 100 MG TABLET PO ONE (15:30)
[2021-03-27] MEDS ORDERED: DEXAMETHASONE 4 MG/ML, 1ML IM ONE (15:30)
--- NOTE | 2021-03-27 15:38 | NUR ---
Dallin: [phone]
[2021-03-27] MEDS ORDERED: DEXAMETHASONE 4 MG/ML, 1ML ONE (15:40)
[2021-03-27] MEDS ORDERED: ALBUTEROL/IPRATROPIUM 2.5MG/0.5MG, 3 ML ONE (15:41)
[2021-03-27] MEDS ORDERED: ALBUTEROL/IPRATROPIUM 2.5MG/0.5MG, 3 ML NEB ONE (16:00)
[2021-03-27] MEDS ORDERED: ALBUTEROL/IPRATROPIUM 2.5MG/0.5MG, 3 ML NPPB ONE (16:00)
[2021-03-27 16:05] VITALS: BP 139/90
--- NOTE | 2021-03-27 16:09 | NUR ---
CALLED [facility] FOR HOME O2 DELIVERY. [facility] STAFF STATES THAT O2 IS READY FOR DELIVERY SOON THE PT CALLS AND REQUESTS. PHONE NUMBER [phone] WILL BE PROVIDED TO PT W INSTRUCTION TO CONCTACT SOON SHE GETS HOME. S/O CALLED FOR O2 & PT TRANSPORT HOME
--- NOTE | 2021-03-27 16:13 | NUR ---
PT REPORTS IMPROVED S/S W RX. AWAITING S/O ARRIVAL FOR DC. PT OFF MONITORING AND UP TO DRESS. DC EDUCATION PROVIDED, PT DEMONSTRATES UNDERSTANDING.
--- NOTE | 2021-03-27 16:27 | NUR ---
DC EDUCATION PROVIDED, PT DEMONSTRATES UNDERSTANDING. PT AMBULATED STEADILY TO DC WITH RN AND FRIEND.
== END 2021-03-27 16:29 | disposition home or self-care (01) ==
LOC: ED 16:20
DX: J02.9 Acute pharyngitis, unspecified (principal); R06.00 Dyspnea, unspecified; B35.6 Tinea cruris; R00.0 Tachycardia, unspecified; J44.9 Chronic obstructive pulmonary disease, unspecified; F17.200 Nicotine dependence, unspecified, uncomplicated
CPT/HCPCS: 93005; 94640; 96372; 99283; J1100